=== PATIENT | female | born 1955 | race Caucasian/White ===

== ENCOUNTER → 2018-06-11 | Outpatient (REF) ==
--- NOTE | 2018-06-12 03:31 | REP ---
Clinical: Neck pain. Technique: AP, lateral, open mouth views of the cervical spine. Findings: Open mouth view demonstrates normal C1-C2 articulation and odontoid process. AP and lateral views demonstrate advanced multilevel degenerative changes including endplate sclerosis/irregularity, osteophytosis, and disc space narrowing primarily involving C5-6 and C6-7. Chronic-appearing anterolisthesis at the C4-5 approximately 2 mm noted. No acute fracture / compression injury. Impression: Advanced multilevel degenerative changes. Electronically Signed by Adriel Johnson MD 06/12/2018 03:23 A
== END ==
LOC: M SMT 09:15
PROVIDERS: ATTEND Internal Medicine
DX: M51.36 Other intervertebral disc degeneration, lumbar region (principal)

== ENCOUNTER → 2018-11-26 | Outpatient (REF) | payer OTHER ==
[2018-11-26 12:43] LABS: PLATELET COUNT, AUTOMATED 330 10^3/uL (150-450)
[2018-11-26 12:52] LABS: INR 1.01
[2018-11-26 12:53] LABS: PARTIAL THROMBOPLASTIN TIME 34.6 SECONDS (25.0-38.4)
== END ==
LOC: M LABDRAW1 10:28
PROVIDERS: ATTEND Physician Assistant
DX: Z01.812 Encounter for preprocedural laboratory examination (principal); M47.894 Other spondylosis, thoracic region

== ENCOUNTER → 2019-07-08 | Outpatient (CLI) | payer OTHER | LOC: M LABSMTC 11:14 | PROVIDERS: ATTEND Physician Assistant | DX: Z03.818 Encounter for observation for suspected exposure to other biological agents ruled out (principal); Z11.59 Encounter for screening for other viral diseases ==

== ENCOUNTER → 2019-11-09 | Outpatient (CLI) | payer OTHER | LOC: M LABSMTC 11:02 | PROVIDERS: ATTEND Physician Assistant | DX: Z01.812 Encounter for preprocedural laboratory examination (principal); Z20.828 Contact with and (suspected) exposure to other viral communicable diseases ==